=== PATIENT | female | born 1995 | race Caucasian/White ===

== ENCOUNTER 2018-02-02 22:53 | Emergency (ER) | payer OTHER ==
[~2018-02-02] VITALS: Ht 157.5 cm; Wt 48.2 kg
[2018-02-02 22:58] VITALS: TEMP 97.2
[2018-02-02 23:33] LABS: BASO % 0.4 % (0.0-2.0); EOS % 0.2 % (0-4.0); GRAN # 8.1 (1.4-6.5); GRAN % 85.3 % (42.2-75.2); HEMATOCRIT 34.8 % (37.0-47.0); LYMPH # 0.8 (1.2-3.4); LYMPH % 8.3 % (20.0-51.0); MEAN CELL VOLUME 88 fl (80.0-100.0); MEAN CORPUSCULAR HEMOGLOBIN 30 pg (27.0-31.0); MEAN CORPUSCULAR HGB CONC 35 g/dl (33.0-37.0); MEAN PLATELET VOLUME 10.2 fl (7.4-10.4); MONO # 0.5 (0.1-0.6); MONO % 5.5 % (1.7-9.3); PLATELET COUNT 158 K/mm3 (130-400); RED BLOOD COUNT 3.96 M/mm3 (4.10-5.30); REDCELL DISTRIBUTION WIDTH-CV 12.4 % (11.5-14.5)
[2018-02-02] MEDS ORDERED: PRILOSEC 20MG20 MG PO (23:36)
[2018-02-02] MEDS ORDERED: UNISOM25 MG PO (23:36)
[2018-02-02] MEDS ORDERED: VITAMIN B-625 MG (23:37)
[2018-02-02 23:43] LABS: ALBUMIN 3.9 gm/dL (3.5-5.0); BILIRUBIN,TOTAL 0.6 mg/dL (0.0-1.0); CALCIUM 9.4 mg/dL (8.4-10.2); CREATININE, serum 0.5 mg/dL (0.52-1.25); POTASSIUM 3.5 mmol/L (3.4-5.0)
[2018-02-03 00:18] LABS: COLLECTION METHOD CLEAN CATCH
[2018-02-03 00:25] LABS: PH 6 (5-8); URINE APPEARANCE Clear; URINE BACTERIA Rare /hpf; URINE BILIRUBIN Negative (NEGATIVE); URINE BLOOD Negative (NEGATIVE); URINE COLOR Yellow; URINE GLUCOSE Negative (NEGATIVE); URINE KETONE 1+ (NEGATIVE); URINE LEUKOCYTE ESTERASE Negative (NEGATIVE); URINE NITRATE Negative (NEGATIVE); URINE PROTEIN(semi-quant) Negative (NEGATIVE); URINE RBC 0-2 /hpf; URINE UROBILINOGEN Negative (NEGATIVE)
[2018-02-03] MEDS ORDERED: PHENERGAN 25 TA25 MG PO (00:35)
[2018-02-03 00:51] VITALS: BP 103/66; PULSE 89
== END 2018-02-03 00:52 | disposition home or self-care (01) ==
LOC: COL.ER 22:53
PROVIDERS: Nurse Practitioner
DX: O21.9 Vomiting of pregnancy, unspecified (principal); Z88.2 Allergy status to sulfonamides; Z3A.14 14 weeks gestation of pregnancy
CPT/HCPCS: J2550; J7030

== ENCOUNTER 2018-03-05 19:20 | Emergency (ER) | payer OTHER ==
[~2018-03-05] VITALS: Ht 157.5 cm; Wt 50.5 kg
[~2018-03-05 19:20] MED LIST: PHENERGAN 25 TA25 MG PO; PRILOSEC 20MG20 MG PO; UNISOM25 MG PO; VITAMIN B-625 MG
[2018-03-05 19:24] VITALS: BP 139/78; PULSE 81; TEMP 97.9
== END 2018-03-05 20:02 | disposition home or self-care (01) ==
LOC: COL.ER 19:20
DX: O26.892 Other specified pregnancy related conditions, second trimester (principal); R10.2 Pelvic and perineal pain; Z3A.19 19 weeks gestation of pregnancy

== ENCOUNTER 2018-05-22 16:39 | Outpatient (CLI) | payer OTHER ==
[~2018-05-22] VITALS: Ht 157.5 cm; Wt 57.3 kg
[2018-05-22 16:54] VITALS: BP 103/58; PULSE 120; TEMP 99.2
[2018-05-22 17:00] VITALS: BP 103/58; PULSE 127; TEMP 99.2
[2018-05-22] MEDS ORDERED: PRENATAL 191 TAB PO (17:00)
--- NOTE | 2018-05-22 17:00 | NUR ---
1645- Patient to unit from office for NST, due to decreased movement and "not being able to keep baby on monitor". 164- EFM applied. Vitals 99.2 temp, RASHAD 103/58 pulse 127. Patient states "I threw up once today and havent been feeling well today." 170- Dr. Ortega at nurses station, Provider reviewing heartones, FHT's in 170-180s. 1700-orders received to start IV, draw labs, give fluid bolus, perform and flu swab and collect a UA.
[2018-05-22] MEDS ORDERED: OSCAL 500 TAB500 MG PO (17:01)
[2018-05-22 17:42] LABS: COLLECTION METHOD CLEAN CATCH
[2018-05-22 17:47] LABS: BASO % 0.3 % (0.0-2.0); EOS % 0.1 % (0-4.0); GRAN # 13.9 (1.4-6.5); GRAN % 87.7 % (42.2-75.2); HEMATOCRIT 37.1 % (37.0-47.0); HEMOGLOBIN 12.7 g/dl (12.5-16.0); LYMPH # 0.7 (1.2-3.4); LYMPH % 4.5 % (20.0-51.0); MEAN CELL VOLUME 91 fl (80.0-100.0); MEAN CORPUSCULAR HEMOGLOBIN 31 pg (27.0-31.0); MEAN CORPUSCULAR HGB CONC 34 g/dl (33.0-37.0); MONO # 1.1 (0.1-0.6); MONO % 6.8 % (1.7-9.3); PLATELET COUNT 175 K/mm3 (130-400); REDCELL DISTRIBUTION WIDTH-CV 12.8 % (11.5-14.5)
[2018-05-22 17:53] LABS: MUCOUS Present /lpf; PH 7 (5-8); SQUAMOUS EPITHELIAL 0-2 /hpf; URINE APPEARANCE Clear; URINE BACTERIA Rare /hpf; URINE BILIRUBIN Negative (NEGATIVE); URINE BLOOD 1+ (NEGATIVE); URINE COLOR Yellow; URINE GLUCOSE Negative (NEGATIVE); URINE KETONE Negative (NEGATIVE); URINE LEUKOCYTE ESTERASE Negative (NEGATIVE); URINE NITRATE Negative (NEGATIVE); URINE PROTEIN(semi-quant) Negative (NEGATIVE); URINE UROBILINOGEN Negative (NEGATIVE); URINE WBC 0-2 /hpf
[2018-05-22 18:00] VITALS: TEMP 99.6
[2018-05-22 18:05] LABS: BILIRUBIN,TOTAL 0.5 mg/dL (0.0-1.0); CALCIUM 9.9 mg/dL (8.4-10.2); CREATININE, serum 0.56 mg/dL (0.52-1.25); POTASSIUM 3.4 mmol/L (3.4-5.0); TOTAL PROTEIN 7.3 gm/dL (6.4-8.2)
[2018-05-22 19:00] VITALS: BP 117/66; PULSE 113; TEMP 98.9
--- NOTE | 2018-05-22 21:00 | NUR ---
1829: Report recieved from Manuel AYOUB. 1834: at nurses station reviewing FHR strip. Orders recieved. See physican notification. Pt updated on plan of care and questions answered. 1934: Pt states she is starting to feel better and states she only has a headache at this time. at nurses station reviewing FHR strip and updated on pts status. See physican notification. 2027: at nurses station and reviews FHR strip. Discharge order received. Pt updated on plan of care. Pt eating dinner at this time. 2044: Pt finished with dinner and monitors off. 2099: IV to LF discontinued. Discharge instructions given to pt and who verbalize understanding. Questions and concerns answered. Pt ambulatory off unit and home with .
== END 2018-05-22 21:00 | disposition home or self-care (01) ==
LOC: LDRO 16:39
PROVIDERS: Obstetrics & Gynecology
DX: O36.8130 Decreased fetal movements, third trimester, not applicable or unspecified (principal); O36.8390 Maternal care for abnormalities of the fetal heart rate or rhythm, unspecified trimester, not applicable or unspecified; Z3A.30 30 weeks gestation of pregnancy
CPT/HCPCS: J7120

== ENCOUNTER 2018-07-16 06:07 | Inpatient (IN) | payer OTHER ==
[2018-07-16] VITALS (56 sets, daily range): BP systolic 109–143; BP diastolic 61–97; PULSE 65–110; TEMP 97.8–99.1
[~2018-07-16] VITALS: Ht 157.5 cm; Wt 59.1 kg
[~2018-07-16 06:07] MED LIST changes: +OSCAL 500 TAB500 MG PO; +PRENATAL 191 TAB PO
--- NOTE | 2018-07-16 07:10 | NUR ---
0710: Patient ambulatory onto unit with at side for scheduled induction of labor for IUGR. Patient reports good movement, denies vaginal bleeding, leaking of fluid, or contractions. Patient changes into gown, oriented to room, plan of care discussed. Assessment completed. 0725: IV started in left hand by Jah Student Nurse with Neri RN Student Instructor assisting. LR infusing per orders. Patient tolerates well. 0730: Consents signed. 0735: Pen G started per orders, see eMAR. 0755: SVE /-1. 0758: Pitocin started per orders, see eMAR.
[2018-07-16 08:02] LABS: BASO # 0.1 (0.0-0.2); BASO % 0.8 % (0.0-2.0); EOS # 0.1 (0.0-0.7); EOS % 0.8 % (0-4.0); GRAN # 4.7 (1.4-6.5); HEMOGLOBIN 12.5 g/dl (12.5-16.0); LYMPH # 1.8 (1.2-3.4); LYMPH % 24.6 % (20.0-51.0); MEAN CELL VOLUME 88 fl (80.0-100.0); MEAN CORPUSCULAR HEMOGLOBIN 30 pg (27.0-31.0); MEAN CORPUSCULAR HGB CONC 34 g/dl (33.0-37.0); MEAN PLATELET VOLUME 10.2 fl (7.4-10.4); MONO # 0.5 (0.1-0.6); MONO % 6.8 % (1.7-9.3); PLATELET COUNT 238 K/mm3 (130-400); REDCELL DISTRIBUTION WIDTH-CV 13.1 % (11.5-14.5)
[2018-07-16 08:03] LABS: HEMATOCRIT 36.9 % (37.0-47.0)
--- NOTE | 2018-07-16 08:40 | NUR ---
at bedside for SVE/AROM. Unable to perform AROM at this time. Plan of care discussed. Questions answered. Call light within reach.
--- NOTE | 2018-07-16 09:45 | NUR ---
Patient up to bathroom, voids 200ml clear yellow urine at this time. Patient now standing at bedside. Reports mild discomfort during contractions but denies need for pain intervention. Plan of care discussed. Questions answered. supportive at bedside. Call light within reach.
--- NOTE | 2018-07-16 10:25 | NUR ---
Patient updated to coming over from office to attempt AROM. Patient verbalizes understanding, assisted back into bed. at bedside, AROM at 1025, large amount of clear fluid noted. SVE /-1 per provider. Pericare performed. Plan of care discussed. Questions answered. Call light within reach.
--- NOTE | 2018-07-16 12:10 | NUR ---
Variable decelerations noted with contractions. SVE unchanged. Patient repositioned to right lateral, then left lateral. Patient rating pain at 2/10 with contractions, denies need for pain intervention. updated on patient status, see physician notification. Call light within reach.
--- NOTE | 2018-07-16 13:05 | NUR ---
Patient up to bathroom, voids without difficulty. Patient reports pain at 3/10 with contractions but denies need for pain intervention. and friend at bedside. Call light within reach.
--- NOTE | 2018-07-16 14:30 | NUR ---
Patient reports pain at 3-4/10 with contractions. Patient up to birthing ball. and friend at bedside. Call light within reach.
--- NOTE | 2018-07-16 15:05 | NUR ---
Patient up to bathroom, voids without difficulty. Rating pain at 5/10 with contractions. Denies need for pain intervention. Patient returns to standing at bedside and then using birthing ball. and friend supportive at bedside. Call light within reach.
--- NOTE | 2018-07-16 16:15 | NUR ---
at bedside. Patient into bed from birthing ball for SVE. Reviews strip, discusses plan of care. Unable to evaluate SVE due to station and patient tensing during exam. Patient desires epidural placement. Melissa BALL WORKER notified. supportive. Call light within reach.
--- NOTE | 2018-07-16 17:00 | NUR ---
1645: Melissa WOOD at bedside. Patient sitting up for epidural. 1648: Lidocaine. 1649: Epidural Catheter. 1651: Test Dose given by Melissa WOOD, no adverse reactions noted. 1655: Patient repositioned to left tilt. Plan of care discussed. Questions answered. at bedside. Call light within reach.
--- NOTE | 2018-07-16 17:35 | NUR ---
Mtz catheter placed, large amount of clear pale yellow urine returned. SVE 1-280/-1. Patient repositioned to right tilt with peanut ball in place. Patient denies pain or needs. Encouraged to rest. Call light within reach.
--- NOTE | 2018-07-16 18:15 | NUR ---
Report to Unique AYOUB to assume care of patient at this time.
--- NOTE | 2018-07-16 19:30 | NUR ---
SVE as noted, to Semi-Fowlers, LR to bolus. Pt relaxed, social.
--- NOTE | 2018-07-16 21:53 | NUR ---
Dr Ortega into room, SVE as noted.
--- NOTE | 2018-07-16 22:10 | NUR ---
SVE by Dr Ortega. Complete. Pushing insrtuctions given. 222 Perineal prep. [address] Ortega.
--- NOTE | 2018-07-16 22:28 | NUR ---
Placenta delivers spont and intact with 3 vessell cord. Pitocin gtt to bolus rate.
--- NOTE | 2018-07-16 22:35 | NUR ---
Perineal repair complete, pericare performed, ice pack to perineum bed together. Pt and spouse quietly loving and cuddling with .
[2018-07-17] VITALS (8 sets, daily range): BP systolic 109–126; BP diastolic 59–83; PULSE 67–84; TEMP 97.7–98.6
--- NOTE | 2018-07-17 01:15 | NUR ---
IV to INT, epidural catheter dc'd. Up to bathroom with careful steady gait. voids large amount, pericare performed. Clean gown on and ambulates to room.
[2018-07-17] MEDS ORDERED: PERCOCET 325 MG1 TA2 PO (08:20)
[2018-07-17] MEDS ORDERED: MOTRIN 800800 MG/TAB PO (08:20)
--- NOTE | 2018-07-17 10:06 | NUR ---
Initial visit; Parents thanked [employer] Installation Helper for looking in on them and offering congratulations for the of their daughter. [employer] Install[employer] Helper thanked them for choosing [facility].
--- NOTE | 2018-07-17 18:46 | NUR ---
RESTING IN BED. NO FURTHER NEEDS AT THIS TIME.
--- NOTE | 2018-07-17 18:46 | NUR ---
BEDSIDE REPORT RECEIVED FROM OFF GOING GINGER PRICE PT RESTING IN BED AND NURSING . POC FOR NIGHT DISCUSSED. D/C BOARD UPDATED.
[2018-07-18 07:00] VITALS: BP 118/80; PULSE 78; TEMP 97.5
--- NOTE | 2018-07-18 11:53 | NUR ---
Visited and congratulated the family on their new baby.
[2018-07-18 16:30] VITALS: BP 120/78; PULSE 71; TEMP 98.6
== END 2018-07-18 17:05 | disposition home or self-care (01) | DRG 807 ==
LOC: LDR 06:07 → OB 07:02 → LDR 07:02 → OB 07-17 03:22
PROVIDERS: ADMIT Obstetrics & Gynecology
PROC: 10E0XZZ Delivery of Products of Conception, External Approach (ICD-10-PCS; principal; 2018-07-16)
PROC: 3E033VJ Introduction of Other Hormone into Peripheral Vein, Percutaneous Approach (ICD-10-PCS; 2018-07-16)
PROC: 10907ZC Drainage of Amniotic Fluid, Therapeutic from Products of Conception, Via Natural or Artificial Opening (ICD-10-PCS; 2018-07-16)
PROC: 0HQ9XZZ Repair Perineum Skin, External Approach (ICD-10-PCS; 2018-07-16)
DX: O36.5930 Maternal care for other known or suspected poor fetal growth, third trimester, not applicable or unspecified (principal); Z37.0 Single live birth; Z3A.37 37 weeks gestation of pregnancy; O70.0 First degree perineal laceration during delivery; O99.824 Streptococcus B carrier state complicating childbirth; Z28.21 Immunization not carried out because of patient refusal; Z88.2 Allergy status to sulfonamides; O99.02 Anemia complicating childbirth; O76 Abnormality in fetal heart rate and rhythm complicating labor and delivery
CPT/HCPCS: J2540; J2590; J7120

== ENCOUNTER 2019-09-30 23:02 | Outpatient (CLI) | payer OTHER ==
[~2019-09-30] VITALS: Ht 157.5 cm; Wt 59.1 kg
--- NOTE | 2019-09-30 23:00 | NUR ---
G2L1 at 36.6 weeks gestation to LDR3 with c/o N/V all day and CTX starting about an hour ago. Patient changed into gown, wedged to left side in bed. EFMs explained and applied. FHR 130 bpm and reactive. CTX q2-3 minutes per toco, moderate to palpation, patient does not appear uncomfortable during CTX. VSS. Cervix very posterior, closed/thick/high. Plan of care reviewed.
[~2019-09-30 23:02] MED LIST changes: +MOTRIN 800800 MG/TAB PO; +PERCOCET 325 MG1 TA2 PO
[2019-09-30 23:05] VITALS: BP 124/81; PULSE 97; TEMP 98.7
[2019-09-30 23:53] LABS: COLLECTION METHOD CLEAN CATCH
[2019-10-01] LABS: AMORPHOUS CRYSTAL Present /uL; MUCOUS Present /lpf; PH 7 (5-8); SQUAMOUS EPITHELIAL 0-2 /hpf; URINE APPEARANCE Cloudy; URINE BACTERIA None Seen /hpf; URINE BILIRUBIN Negative (NEGATIVE); URINE BLOOD Negative (NEGATIVE); URINE COLOR Yellow; URINE GLUCOSE Negative (NEGATIVE); URINE KETONE Negative (NEGATIVE); URINE LEUKOCYTE ESTERASE Negative (NEGATIVE); URINE NITRATE Negative (NEGATIVE); URINE PROTEIN(semi-quant) Negative (NEGATIVE); URINE UROBILINOGEN Negative (NEGATIVE); URINE WBC None Seen /hpf
--- NOTE | 2019-10-01 | NUR ---
Patient is able to drink 2 glasses of water and 4 packs of crackers without vomoting. Patient states that contractions have spaced out and that only some are uncomfortable. She is able to sleep through them.
--- NOTE | 2019-10-01 00:30 | NUR ---
Lab called as lab results have still not been drawn. Lab states that there is only person working in the lab right now and we will have to call salesperson household appliances for lab draw. 0045 Lab drawn by salesperson household appliances and sent to lab.
[2019-10-01 00:56] LABS: BASO # 0.1 (0.0-0.2); BASO % 0.6 % (0.0-2.0); EOS # 0.1 (0.0-0.7); EOS % 0.8 % (0-4.0); GRAN # 6.3 (1.4-6.5); GRAN % 67.5 % (42.2-75.2); HEMATOCRIT 37.8 % (37.0-47.0); HEMOGLOBIN 12.5 g/dl (12.5-16.0); LYMPH # 2.1 (1.2-3.4); LYMPH % 22.4 % (20.0-51.0); MEAN CELL VOLUME 89 fl (80.0-100.0); MEAN CORPUSCULAR HEMOGLOBIN 30 pg (27.0-31.0); MEAN CORPUSCULAR HGB CONC 33 g/dl (33.0-37.0); MEAN PLATELET VOLUME 10.3 fl (7.4-10.4); MONO # 0.8 (0.1-0.6); MONO % 8.1 % (1.7-9.3); PLATELET COUNT 188 K/mm3 (130-400); RED BLOOD COUNT 4.24 M/mm3 (4.10-5.30); REDCELL DISTRIBUTION WIDTH-CV 13.1 % (11.5-14.5)
[2019-10-01 01:00] VITALS: BP 129/75; PULSE 86
[2019-10-01 01:07] LABS: ALBUMIN 3.9 gm/dL (3.5-5.0); BILIRUBIN,TOTAL 0.5 mg/dL (0.0-1.0); CALCIUM 9.9 mg/dL (8.4-10.2); CREATININE, serum 0.5 (0.52-1.25); POTASSIUM 3.5 mmol/L (3.4-5.0); TOTAL PROTEIN 7.1 gm/dL (6.4-8.2)
--- NOTE | 2019-10-01 02:00 | NUR ---
Patient sleeps in bed. Dr. Valdes on unit and reviews labs, orders to DC received. Discharge instructions reviewed with patient and spouse.
== END 2019-10-01 02:05 | disposition home or self-care (01) ==
LOC: LDRO 23:02
PROVIDERS: Obstetrics & Gynecology
DX: O62.9 Abnormality of forces of labor, unspecified (principal); Z3A.36 36 weeks gestation of pregnancy

== ENCOUNTER 2019-10-07 14:07 | Outpatient (CLI) | payer OTHER ==
[~2019-10-07] VITALS: Ht 157.5 cm; Wt 59.1 kg
--- NOTE | 2019-10-07 14:15 | NUR ---
Pt ambulatory to the unit with friend by their side. Pt. changed into gown and EFM and TOCO on and tracing. Pt. sent over from office for extended monitoring. Pt. was seen at office for decreased movement. Pt. reports feeling baby move in route to the hospital. Pt. denies VB, CTX, and LOF.
[2019-10-07 14:30] VITALS: BP 117/69; PULSE 87; TEMP 97.6
--- NOTE | 2019-10-07 15:05 | NUR ---
Patient reports feeling movement during monitoring. Discharge instructions and return precautions given. Patient verbalized understanding. Ambulatory off of unit with friend at side.
== END 2019-10-07 15:05 | disposition home or self-care (01) ==
LOC: LDRO 14:07 → LDR 14:08 → LDRO 15:05
DX: O36.8130 Decreased fetal movements, third trimester, not applicable or unspecified (principal); Z3A.37 37 weeks gestation of pregnancy
CPT/HCPCS: OP

== ENCOUNTER 2019-10-17 14:40 | Outpatient (CLI) | payer OTHER ==
[~2019-10-17] VITALS: Ht 157.5 cm; Wt 59.5 kg
[2019-10-17 14:26] VITALS: BP 118/75; PULSE 110; TEMP 98.2
--- NOTE | 2019-10-17 14:40 | NUR ---
PATIENT HERE TO LR 5 FOR DECREASED MOVEMENT AND CONTRACTIONS THAT STARTED AROUND 530 AM. PATIENT CHANGED INT0 GOWN, ON EFM, VITALS OBTAINED. ASSSEMENT COMPLETE, SVE PREFORMED. PATIENT DENIES LEAKING OF FLUID OR BLEEDING. AT BEDSIDE
[2019-10-17 15:00] VITALS: BP 118/75; PULSE 110
--- NOTE | 2019-10-17 15:20 | NUR ---
PATIENT STATES SHE IS FEELING GOOD MOVEMENT AFTER DRINKING JUICE
[2019-10-17 15:40] VITALS: BP 121/83; PULSE 106
== END 2019-10-17 15:50 | disposition home or self-care (01) ==
LOC: LDRO 14:40 → LDR 14:40 → LDRO 15:50 → LDR 15:50
DX: O62.9 Abnormality of forces of labor, unspecified (principal); O36.8130 Decreased fetal movements, third trimester, not applicable or unspecified; Z3A.39 39 weeks gestation of pregnancy
CPT/HCPCS: OP

== ENCOUNTER 2019-10-18 13:00 | Inpatient (IN) | payer OTHER ==
[~2019-10-18] VITALS: Ht 157.5 cm; Wt 59.5 kg
[2019-10-18] VITALS (10 sets, daily range): BP systolic 118–161; BP diastolic 68–85; PULSE 79–100; TEMP 97.8–98.5
--- NOTE | 2019-10-18 12:53 | NUR ---
1253-G2L1, 39.[address] Jarquin' to LR 2 with complaints of contractions since 0200. Reports good FM and denies LOF. To bathroom and then to bed. Placed on EFM. VSS, 1258-SVE 10/100/+2, BOWI 1302-SROM in bed, clear fluid noted. Dr. Jarquin requested for delivery. 1305-IV to left hand, blood drawn and sent to lab per protocol. LR infusing, Patient to knee chest for comfort. 1308-Dr. Jarquin to room, set up for delivery 1312-Lidocaine administered by Dr. Jarquin to perineum. 1314-Patient begins pushing with contraction, moves vertex well. 1316-Spontaneous delivery of head immediately followed by body. Viable female infant to mothers abdomen, cord clamped x2 and cut by FOB Care of infant assumed by MEGA Franklin apgars 9/9/9. 1321-Spontaneous delivery of intact palcenta by MD, fundal massage firm.[place] W[employer]. Pitocin bolus per protocol and MD order. Superficial vaginal laceration repaired by MD. Maribeth care provided. Updated on safety and plan of care.
[2019-10-18 14:09] LABS: BASO # 0.1 (0.0-0.2); BASO % 0.4 % (0.0-2.0); EOS % 0.1 % (0-4.0); GRAN # 9.2 (1.4-6.5); GRAN % 77.2 % (42.2-75.2); HEMATOCRIT 43.6 % (37.0-47.0); HEMOGLOBIN 14.3 g/dl (12.5-16.0); LYMPH # 1.8 (1.2-3.4); LYMPH % 15.5 % (20.0-51.0); MEAN CELL VOLUME 89 fl (80.0-100.0); MEAN CORPUSCULAR HEMOGLOBIN 29 pg (27.0-31.0); MEAN CORPUSCULAR HGB CONC 33 g/dl (33.0-37.0); MEAN PLATELET VOLUME 10.9 fl (7.4-10.4); MONO # 0.7 (0.1-0.6); MONO % 6.2 % (1.7-9.3); PLATELET COUNT 221 K/mm3 (130-400); RED BLOOD COUNT 4.91 M/mm3 (4.10-5.30); REDCELL DISTRIBUTION WIDTH-CV 13.2 % (11.5-14.5)
--- NOTE | 2019-10-18 15:15 | NUR ---
Patient ambulatory to bathroom, unable to void. Maribeth care provided. Ambulatory to room 212. Patient oriented to room and plan of care. 1630-Voids 400ml clear urine
[2019-10-19 00:10] VITALS: BP 96/55; PULSE 75; TEMP 97.4
[2019-10-19 05:00] VITALS: BP 98/58; PULSE 75; TEMP 97.9
[2019-10-19 07:42] VITALS: BP 113/77; PULSE 78; TEMP 97.9
[2019-10-19] MEDS ORDERED: IBU600 MG PO (08:44)
[2019-10-19 11:51] VITALS: BP 115/80; PULSE 73
== END 2019-10-19 16:30 | disposition home or self-care (01) | DRG 807 ==
LOC: OB 13:00 → LDR 13:00 → OB 15:15
PROVIDERS: ADMIT Obstetrics & Gynecology
PROC: 10E0XZZ Delivery of Products of Conception, External Approach (ICD-10-PCS; principal; 2019-10-18)
PROC: 0HQ9XZZ Repair Perineum Skin, External Approach (ICD-10-PCS; 2019-10-18)
DX: O99.02 Anemia complicating childbirth (principal); Z37.0 Single live birth; O70.0 First degree perineal laceration during delivery; Z3A.39 39 weeks gestation of pregnancy
CPT/HCPCS: J2590; J7120